=== PATIENT | female | born 1975 | race Caucasian/White ===

== ENCOUNTER 2022-02-25 17:06 | Outpatient (CLI) | payer OTHER, SELFPAY | END 2022-02-25 17:07 | disposition home or self-care (01) | LOC: NFLDUCREF 02-28 10:02 | PROVIDERS: Visit Provider Registered Nurse | DX: R30.0 Dysuria (principal); N39.0 Urinary tract infection, site not specified | CPT/HCPCS: 87086; 87186 ==

== ENCOUNTER 2023-08-11 15:38 | Outpatient (CLI) | payer OTHER, SELFPAY | END 2023-08-11 15:39 | disposition home or self-care (01) | LOC: NFLDREF 08-15 09:23 | PROVIDERS: PCP Nurse Practitioner Family; Visit Provider Nurse Practitioner Family | DX: N30.00 Acute cystitis without hematuria (principal); B96.20 Unspecified Escherichia coli [E. coli] as the cause of diseases classified elsewhere | CPT/HCPCS: 87086; 87186 ==

== ENCOUNTER 2025-04-13 07:07 | Day surgery (SDC) | payer OTHER, SELFPAY ==
[2025-04-13] VITALS (18 sets, daily range): BP systolic 87–116; BP diastolic 54–80; PULSE 61–97; RESP 12–18; TEMP 36.2–36.9; O2SAT 97–100; BMI 22.1
[2025-04-13] MEDS: LACTATED RINGERS 1000 ML 1,000 ML 100 ML IV (07:30)
[2025-04-13] MEDS: SODIUM CHLORIDE 0.9 % (FLUSH) 10 ML SYRINGE IVF (07:44)
--- NOTE | 2025-04-13 08:04 | W.PM.H&PU ---
History & Physical Update History & Physical Update H&P Reviewed and patient assessed: No changes noted
[2025-04-13] MEDS: MIDAZOLAM HCL 1 MG/ML inj IVP (08:40)
--- NOTE | 2025-04-13 08:46 | SUR.PREOP ---
TIME?OUT:?0839 PT/RN/MDA?VERIFICATION?OF?SURGICAL?SITE,?PROCEDURE,?AND?CONSENT OBTAINED?PRIOR?TO?INVASIVE?PROCEDURE.
[2025-04-13] MEDS: CLINDAMYCIN 900 MG/50 ML-D5W 900 MG/50 ML PIGGYBACK 100 MG IVPB (09:35)
--- NOTE | 2025-04-13 09:43 | P.NB_ITS ---
Nerve Block Nerve Block Time Seen by Provider: 08:40 Date Seen: 04/13/25 Type of block requested by surgeon for post-operative analgesia: supraclavicular Side: right Time out performed: Yes Verification of patient name: Yes Verification of date of : Yes Site marking: site marked Name of person performing procedure: John Paul Continuous monitoring Was continuous monitoring of O2 sat, B/P, monitoring manager, recorded every 15 minutes?: Yes Procedure Checklist: sterile prep, needles and gloves Ultrasound guided. Images saved: Yes Medications given in 5ml increments after negative aspiration: Ropivicaine %: 0.5 mL: 15 Needle gauge: 22 Precedex (mcg): 25 Patient tolerated procedure well: Yes Block Charges Block Charge (with Pro Fee): Brachial Plexus Use of Ultrasound Machine for Block: Yes- US Guidance/pain block
--- NOTE | 2025-04-13 09:44 | P.ANES_ITS ---
Anesthesia Charges Start Date/Time Anesthesia Start Date: 04/13/25 Anesthesia Start Time: 09:18 Stop Date/Time Anesthesia Stop Date: 04/13/25 Anesthesia Stop Time: 10:59 Coding CPT Codes CPT Codes: ANESTH SURGERY OF SHOULDER - 27712 ([id number]) P2 - PATIENT W/MILD SYST DISEASE, QK - GRADUATE RESEARCH ASSISTANT 2-4 CNCRNT ANES PROC, QX - SPEAKER MOUNTER SVC W/ MD MED DIRECTION
--- NOTE | 2025-04-13 09:44 | W.ANESCHARGE ---
Anesthesia Charges Start Date/Time Anesthesia Start Date: 04/13/25 Anesthesia Start Time: 09:18 Stop Date/Time Anesthesia Stop Date: 04/13/25 Anesthesia Stop Time: 10:59 Coding CPT Codes CPT Codes: ANESTH SURGERY OF SHOULDER - 10404 ([id number]) P2 - PATIENT W/MILD SYST DISEASE, QK - BLAST FURNACE TENDER 2-4 CNCRNT ANES PROC, QX - LIQUEFIED PETROLEUM GASFITTER SVC W/ MD MED DIRECTION
--- NOTE | 2025-04-13 10:53 | P.ORPRC_ITS ---
Procedure Note Date of procedure: 04/13/25 Procedure: PREOPERATIVE DIAGNOSES: 1. Right shoulder rotator cuff tear, partial-thickness articular sided supraspinatus 2. Right shoulder subacromial impingement syndrome. 3. Right shoulder AC joint osteoarthritis, primary, severe POSTOPERATIVE DIAGNOSES: 1. Right shoulder rotator cuff tear, partial-thickness articular sided supraspinatus - low-grade 2. Right shoulder subacromial impingement syndrome. 3. Right shoulder AC joint osteoarthritis, primary, severe NAME OF OPERATION: 1. Right shoulder arthroscopic distal clavicle excision. 2. Right shoulder arthroscopic limited glenohumeral debridement 3. Right shoulder arthroscopic subacromial decompression/partial acromioplasty SURGEON: Beni Acevedo MD YACHT CAPTAIN: Mike Rolle PA-C. Of note, an ophthalmology assistant was critical for this case to aide in patient positioning, suture manipulation, arm positioning, instrument positioning, and closure. ANESTHESIA: General plus preoperative supraclavicular block. IMPLANTS: None COMPLICATIONS: None evident INDICATIONS: The patient is a pleasant, 49-year-old female who has experienced right shoulder pain that has been increasing in recent time. Physical exam and imaging were consistent with a subacromial impingement syndrome and AC arthrosis. MRI was obtained indeed confirmed substantial AC joint capsular hypertrophy and edema of the distal clavicle but also revealed a deep/articular sided supraspinatus partial-thickness rotator cuff tear with retraction of that tissue. Given their findings, as well as the pain, and inadequate response to nonoperative management, recommendation was made for surgery. FINDINGS: Exam under anesthesia revealed stable shoulder with excellent range of motion. The diagnostic arthroscopy revealed healthy chondral surfaces of the glenohumeral joint. The Subscapularis tendon was intact with healthy attachment. The long head of the biceps tendon was within the bicipital groove. It did show some low-grade partial-thickness tearing at its origin with mild lift-off from the glenoid tubercle. The articular side of the supraspinatus [place] low-grade partial-thickness tearing (less than 1 mm of thickness) and was in the far anterior aspect of the supraspinatus. That tissue had retracted back approximately 1 cm, but was of minimal involvement for the thickness. The bursal side of the rotator cuff/supraspinatus showed no significant partial- thickness tearing. The infraspinatus also appeared to be intact and hardwick. The labrum was torn in a partial-thickness manner involving the posterosuperior, superior, and anterosuperior regions. [place] complex of the middle glenohumeral ligament noted. No loose bodies were identified within the pouch or subscapularis recess. PROCEDURE: Following a thorough discussion of risks, benefits, and alternatives, consent was obtained and the right shoulder was marked. The patient was brought to the operating room and placed supine on the operating table. Induction of anesthesia was completed after preoperative supraclavicular block was administered in preop holding. Appropriate time out was performed identifying proper patient, site, and procedure. 2 g IV Ancef was administered within 1 hour of incision preoperatively. The right upper extremity was prepped and draped in the appropriate sterile fashion using ChloraPrep prep. This was after the patient was positioned in the beach chair with their head in neutral alignment and all bony prominences well padded. The shoulder was insufflated with 20mL of normal saline via an 18g spinal needle from a posterior approach. An 11 blade skin incision allowed a blunt trochar to be inserted and diagnostic arthroscopy to be performed with the findings as noted above. An anterior portal was established with an outside in technique. This allowed the probe to be inserted and confirm the diagnostic arthroscopic findings. This allowed us to better probing understand the involvement of the articular sided supraspinatus tear. We were able to debride this rotator cuff tissue with a torpedo shaver back to a stable edge as a retracted 1 cm medially. Minimal debridement was needed on the humeral head/greater tuberosity. The torpedo shaver was also utilized to debride the labral tearing including the biceps origin. Although a limited glenohumeral debridement was not anticipated for the surgery, it was absolutely felt to be prudent to debride the torn labral and rotator cuff tissue in the articular compartment. We then went into the subacromial space. This revealed abundant bursitis and again a hypertrophied AC joint capsule. The shaver and [place] cautery device were then inserted and allowed debridement of the subacromial bursa/subdeltoid bursa. Following this, the subacromial decompression/partial acromioplasty was performed with a 5.5 mm bur. This bur was then utilized for distal clavicle excision removing approximately 8 mm of distal clavicle. The camera was visualized within the AC joint space and found that the bone was completely removed from the more caudal to the more cephalad position confirming release/excision while sparing the superior and posterior capsule. Thereafter, the shaver was reinserted into the subacromial space and all remaining bony debris was excised. Instruments removed, excess fluid was drained, closure performed with 4 Monocryl and Steri-Strips. Dressings were applied. Sling was applied. The patient was awoken from anesthesia and transferred to the PACU in stable condition. PLAN: 1. Elbow, forearm, wrist and digit range of motion as tolerated. 2. Encouraged ice. 3. Oxycodone for pain as needed. 4. Sling at all times except for ROM and showering. 5. Follow up with me in 1-2 weeks for wound check.
--- NOTE | 2025-04-13 10:59 | P.ANES_ITS ---
Anesthesia Charges Start Date/Time Anesthesia Start Date: 04/13/25 Anesthesia Start Time: 09:18 Stop Date/Time Anesthesia Stop Date: 04/13/25 Anesthesia Stop Time: 10:59 Coding CPT Codes CPT Codes: ANESTH SURGERY OF SHOULDER - 32191 ([id number]) P2 - PATIENT W/MILD SYST DISEASE, QK - NONPROFIT FINANCIAL CONTROLLER 2-4 CNCRNT ANES PROC, QX - FLAT HAMMERER SVC W/ MD MED DIRECTION
--- NOTE | 2025-04-13 10:59 | W.ANESCHARGE ---
Anesthesia Charges Start Date/Time Anesthesia Start Date: 04/13/25 Anesthesia Start Time: 09:18 Stop Date/Time Anesthesia Stop Date: 04/13/25 Anesthesia Stop Time: 10:59 Coding CPT Codes CPT Codes: ANESTH SURGERY OF SHOULDER - 32950 ([id number]) P2 - PATIENT W/MILD SYST DISEASE, QK - PHOTOGRAPHER AERIAL 2-4 CNCRNT ANES PROC, QX - POWER BARKER SVC W/ MD MED DIRECTION
[2025-04-13] MEDS: LACTATED RINGERS 1000 ML 1,000 ML 30 ML IV (11:00)
[2025-04-13] MEDS: PROCHLORPERAZINE 5 MG/ML VIAL IVP (12:15)
[2025-04-13] MEDS: IBUPROFEN 200 MG TABLET 600 MG PO (12:32)
[2025-04-13] MEDS: ONDANSETRON 2 MG/ML inj 4 MG IVP (13:51)
== END 2025-04-13 14:11 | disposition home or self-care (01) ==
LOC: OR 07:07
PROVIDERS: Visit Provider Orthopaedic Surgery Sports Medicine
PROC: (CPT 29805; principal; 2025-04-13 09:00)
DX: M75.111 Incomplete rotator cuff tear or rupture of right shoulder, not specified as traumatic (principal); M75.41 Impingement syndrome of right shoulder; M19.011 Primary osteoarthritis, right shoulder; G89.18 Other acute postprocedural pain
CPT/HCPCS: 29824; 29822; 29826; 01630; 64415; 76942; A9270; J0330; J0736; J0780; J1100; J2250; J2405; J2704; J2710; J2795; J3010; J7120